=== PATIENT | male | born 1990 | race Caucasian/White ===

== ENCOUNTER 2016-06-09 22:55 | Emergency (ER) | payer SELFPAY ==
[2016-06-09 23:17] VITALS: BP 121/52; PULSE 59; TEMP 98.2; BMI 27.3
--- NOTE | 2016-06-10 00:21 | PDOC ---
History of Present Illness - General History Source: Patient Exam Limitations: No Limitations - History of Present Illness Initial Comments: 06/10/16 00:42 The patient is a 26-year-old male with a significant past medical history of childhood asthma, and presents to the emergency department with shortness of breath and chest pain today. The patient reports the chest pain started earlier today at work, and is located in the midsternal region. He describes the pain as a tightness in his chest. He states the chest pain is exacerbated in the cold weather. He states he was diagnosed with viral syndrome a few days ago at [facility]. He reports a persistent cough. The patient denies palpitations, headache and dizziness. The patient denies fever, chills, nausea, vomit, diarrhea and constipation. The patient denies dysuria, frequency, urgency and hematuria. Allergies: NKDA Past Surgical History: None reported Social History: Former smoker (quit one month ago) <Gali Slaughter - Last Filed: 06/10/16 00:42> <Ailin Barroso - Last Filed: 06/10/16 01:25> - General Chief Complaint: Shortness of Breath Stated Complaint: SOB Time Seen by Provider: 06/10/16 00:20 Past History <Gali Slaughter - Last Filed: 06/10/16 00:42> - Past Medical History Asthma: Yes - Psycho/Social/Smoking Cessation Hx Suicidal Ideation: No Smoking History: Former smoker Have you smoked in the past 12 months: Yes If you are a former smoker, when did you quit?: 1 month Information on smoking cessation initiated: No <Ailin Barroso - Last Filed: 06/10/16 01:25> - Past Medical History Allergies/Adverse Reactions: Allergies Allergy/AdvReac Type Severity Reaction Status Date / Time No Known Allergies Allergy Verified 06/09/16 23:11 Home Medications: Ambulatory Orders NK [No Known Home Medication] 06/10/16 Review of Systems - Review of Systems Able to Perform ROS?: Yes Comments:: 06/10/16 00:42 CONSTITUTIONAL: Absent: fever, chills, diaphoresis, generalized weakness, malaise, loss of appetite HEENT: Absent: rhinorrhea, nasal congestion, throat pain, throat swelling, difficulty swallowing, mouth swelling, ear pain, eye pain, visual changes CARDIOVASCULAR: Present: (+) chest pain Absent: syncope, palpitations, irregular heart rate, lightheadedness, peripheral edema RESPIRATORY: Present: (+) cough, (+) shortness of breath Absent: dyspnea with exertion, orthopnea, wheezing, stridor, hemoptysis GASTROINTESTINAL: Absent: abdominal pain, abdominal distension, nausea, vomiting, diarrhea, constipation, melena, hematochezia GENITOURINARY: Absent: dysuria, frequency, urgency, hesitancy, hematuria, flank pain, genital pain MUSCULOSKELETAL: Absent: myalgia, arthralgia, joint swelling SKIN: Absent: rash, itching, pallor HEMATOLOGIC/IMMUNOLOGIC: Absent: easy bleeding, easy bruising, lymphadenopathy, frequent infections ENDOCRINE: Absent: unexplained weight gain, unexplained weight loss, heat intolerance, cold intolerance NEUROLOGIC: Absent: headache, focal weakness or paresthesias, dizziness, unsteady gait, seizure, mental status changes, bladder or bowel incontinence PSYCHIATRIC: Absent: anxiety, depression, suicidal or homicidal ideation, hallucinations. <Slaughter,Gali - Last Filed: 06/10/16 00:42> *Physical Exam - Vital Signs Last Vital Signs Temp Pulse Resp BP Pulse Ox 98.2 F 59 L 18 121/52 99 06/09/16 23:08 06/09/16 23:08 06/09/16 23:08 06/09/16 23:08 06/09/16 23:08 - Physical Exam Comments: 06/10/16 00:43 GENERAL: Well developed, well nourished. Awake and alert. No acute distress. HEENT: Normocephalic, atraumatic. PERRLA, EOMI. No conjunctival pallor. Sclera are non- icteric. Moist mucous membranes. Oropharynx is clear. NECK: Supple. Full ROM. No JVD. Carotid pulses 2+ and symmetric, without bruits. No thyromegaly. No lymphadenopathy. CARDIOVASCULAR: Regular rate and rhythm. No murmurs, rubs, or gallops. Distal pulses are 2+ and symmetric. PULMONARY: No evidence of respiratory distress. Lungs clear to auscultation bilaterally. No wheezing, rales or rhonchi. ABDOMINAL: Soft. Non-tender. Non-distended. No rebound or guarding. No organomegaly. Normoactive bowel sounds. MUSCULOSKELETAL Normal range of motion at all joints. No bony deformities or tenderness. No CVA tenderness. EXTREMITIES: No cyanosis. No clubbing. No edema. No calf tenderness. SKIN: Warm and dry. Normal capillary refill. No rashes. No jaundice. NEUROLOGICAL: Alert, awake, appropriate. Cranial nerves 2-12 intact. No deficits to light touch and temperature in face, upper extremities and lower extremities. No motor deficits in the in face, upper extremities and lower extremities. Normoreflexic in the upper and lower extremities. Normal speech. Toes are down- going bilaterally. Gait is normal without ataxia. PSYCHIATRIC: Cooperative. Good eye contact. Appropriate mood and affect. <Gali Slaughter - Last Filed: 06/10/16 00:42> - Vital Signs Last Vital Signs Temp Pulse Resp BP Pulse Ox 98.2 F 59 L 18 121/52 99 06/09/16 23:08 06/09/16 23:08 06/09/16 23:08 06/09/16 23:08 06/09/16 23:08 <Ailin Barroso - Last Filed: 06/10/16 01:25> ED Treatment Course - Medications Given in the ED: ED Medications Discontinued Medications Generic Name Dose Route Start Last Admin Trade Name Freq PRN Reason Stop Dose Admin Ibuprofen 600 mg 06/10/16 00:35 06/10/16 00:41 Motrin - PO 06/10/16 00:36 600 mg ONCE ONE Administration <Gali Slaughter - Last Filed: 06/10/16 00:42> Medical Decision Making - Medical Decision Making 06/10/16 01:01 Pt comes with chest wall pain/costochondritis. States that he had been diagnosed with a viral illness and now he has CP. Slight cough. CHest pain. Pt will be treated with NSAIDS and he will get EKG and cxr. Home with nsaids. <Ailin Barroso - Last Filed: 06/10/16 01:25> *DC/Admit/Observation/Transfer - Attestations Scribe Attestion: 06/10/16 00:43 Documentation prepared by Gali Slaughter, acting as biomedical field service engineer for Ailin Barroso MD. <Gali Slaughter - Last Filed: 06/10/16 00:42> - Discharge Dispostion Admit: No <Ailin Barroso - Last Filed: 06/10/16 01:25> Diagnosis at time of Disposition: Cough, Chest wall pain - Discharge Dispostion Condition at time of disposition: Stable - Patient Instructions Printed Discharge Instructions: DI for Costochondritis - Post Discharge Activity Work/School Note: Back to Work
[2016-06-10] MEDS ORDERED: IBUPROFEN 600 MG TABLET (FP) PO ONE ×2 (00:35→00:39)
== END 2016-06-10 01:37 | disposition home or self-care (01) ==
LOC: JER 22:55
DX: M94.0 Chondrocostal junction syndrome [Tietze] (principal); Z87.891 Personal history of nicotine dependence
CPT/HCPCS: 71020-TC; 99282-25

== ENCOUNTER 2018-07-15 09:53 | Emergency (ER) | payer SELFPAY ==
[2018-07-15 10:02] VITALS: BP 144/95; PULSE 93; TEMP 98; BMI 86.3
--- NOTE | 2018-07-15 10:35 | PDOC ---
*Physical Exam - Vital Signs Last Vital Signs Temp Pulse Resp BP Pulse Ox 98.0 F 93 H 17 144/95 100 07/15/18 09:57 07/15/18 09:57 07/15/18 09:57 07/15/18 09:57 07/15/18 09:57 ED Treatment Course - LABORATORY CBC & Chemistry Diagram: 07/15/18 11:15 07/15/18 11:15 Medical Decision Making - Medical Decision Making 07/15/18 10:35 Pt seen by Midlevel Provider under my direct supervision I agree with plan as outlined by Midlevel Provider *DC/Admit/Observation/Transfer Diagnosis at time of Disposition: Upper abdominal pain - Discharge Dispostion Disposition: HOME Condition at time of disposition: Improved - Referrals - Patient Instructions Printed Discharge Instructions: Gastritis, DI for Abdominal Pain-Adult Additional Instructions: You can take Pepcid or prilosec [id number] as needed for pain and follow- up in the following clinic in this week to be seen by GI: [facility] at [phone] - Post Discharge Activity Forms/Work/School Notes: Back to Work
[2018-07-15] MEDS ORDERED: MAG HYDROX/AL HYDROX/SIMETH -MYLANTA- ORAL SUSPENSION PO ONE (10:47)
[2018-07-15] MEDS ORDERED: FAMOTIDINE 20 MG/50 ML IVPB 20 MG/50 ML MG IVPB ONE ×2 (10:47→11:12)
--- NOTE | 2018-07-15 10:51 | PDOC ---
History of Present Illness - General Chief Complaint: Pain Stated Complaint: ABD PAIN Time Seen by Provider: 07/15/18 10:05 History Source: Patient - History of Present Illness Timing/Duration: reports: intermittent Abdominal Pain Onset Location: reports: epigastric Past History - Past Medical History Allergies/Adverse Reactions: Allergies Allergy/AdvReac Type Severity Reaction Status Date / Time No Known Allergies Allergy Verified 07/15/18 10:02 Home Medications: Ambulatory Orders NK [No Known Home Medication] 06/10/16 Asthma: Yes - Suicide/Smoking/Psychosocial Hx Smoking History: Former smoker Have you smoked in the past 12 months: No If you are a former smoker, when did you quit?: 1 month Information on smoking cessation initiated: Yes Review of Systems - Review of Systems Constitutional: No: Chills, Fever Respiratory: No: Shortness of Breath Cardiac (ROS): No: Chest Pain ABD/GI: Yes: Nausea. No: Blood Streaked Bowels, Constipated, Diarrhea, Vomiting : No: Burning, Dysuria, Flank Pain, Hematuria *Physical Exam - Vital Signs Last Vital Signs Temp Pulse Resp BP Pulse Ox 98.0 F 93 H 17 144/95 100 07/15/18 09:57 07/15/18 09:57 07/15/18 09:57 07/15/18 09:57 07/15/18 09:57 - Physical Exam Comments: 07/15/18 11:01 Pt well-appearing and in no apparent distress, currently sitting on chair and on phone General Appearance: Yes: Appropriately Dressed. No: Apparent Distress HEENT: positive: Normal Voice Neck: positive: Supple Respiratory/Chest: negative: Respiratory Distress Gastrointestinal/Abdominal: positive: Normal Bowel Sounds, Soft. negative: Tender, Distended, Guarding, Rebound Musculoskeletal: negative: CVA Tenderness Integumentary: positive: Dry, Warm Neurologic: positive: Fully Oriented, Alert, Normal Mood/Affect ED Treatment Course - LABORATORY CBC & Chemistry Diagram: 07/15/18 11:15 07/15/18 11:15 Medical Decision Making - Medical Decision Making 07/15/18 10:42 28 yo M, p/w severe upper abdominal pain 3 days, described as both "hunger pain " and sharp, intermittent, possible worse with food. Also reports dark vs black stool yesterday. + nausea this a.m. no vomiting. Denies constipation, diarrhea, fever or chills. Patient states for the past 6 months has had intermittent burning epigastric pain radiating into his chest that patient self diagnosed as "acid reflux". Usually takes Zantac which relieve symptoms after about an hour. States he took Zantac 3 days ago, which did not relieve current symptoms. States current pain worse than in the past. Denies excessive ETOH use and denies illicit drug use. Patient states he has never been medically evaluated for his symptoms and currently does not have insurance See exam Possible gastritis/GERD vs PUD, less likely biliary, pancreatitis or appy Exam unremarkable -GI cocktail -labs -anticipate dc w/ GI f/u 07/15/18 12:44 Labs remarkable. Patient now reports significant improvement in pain and feels well enough to go home. As patient has no insurance, will give follow-up in [facility] to be seen by GI *DC/Admit/Observation/Transfer Diagnosis at time of Disposition: Upper abdominal pain - Discharge Dispostion Disposition: HOME Condition at time of disposition: Improved - Referrals - Patient Instructions Printed Discharge Instructions: Gastritis, DI for Abdominal Pain-Adult Additional Instructions: You can take Pepcid or prilosec [id number] as needed for pain and follow- up in the following clinic in this week to be seen by GI: [facility] at [phone] - Post Discharge Activity Forms/Work/School Notes: Back to Work
[2018-07-15] MEDS ORDERED: MAG HYDROX/AL HYDROX/SIMETH 30 ML UNIT-DOSE CUP ONE (11:12)
[2018-07-15 11:46] LABS: BASO % 0.4 % (0-2.0); EOS % 2.9 % (0-4.5); HEMATOCRIT 43.2 % (35.4-49); HEMOGLOBIN 14.9 GM/dL (11.7-16.9); LYMPH % 21.6 % (8-40); MCH 30.7 pg (25.7-33.7); MCHC 34.6 g/dl (32.0-35.9); MEAN CELL VOLUME 88.6 fl (80-96); MEAN PLT VOLUME 8.5 fl (7.5-11.1); NEUT % 70.1 % (42.8-82.8); PLATELET COUNT 258 K/MM3 (134-434); RBC 4.88 M/mm3 (4.00-5.60); RDW 13.4 % (11.9-15.9); WHITE BLOOD COUNT 6.2 K/mm3 (4.0-10.0)
[2018-07-15] MEDS ORDERED: ACETAMINOPHEN 1000 MG/100 ML VIAL (NON FORMULARY) IVPB ONE (12:09)
[2018-07-15] MEDS ORDERED: RANITIDINE HCL 150 MG TABLET (FP) PO ONE (12:09)
[2018-07-15 12:15] LABS: ALBUMIN 4.1 g/dl (3.4-5.0); ALK PHOS 77 U/L (45-117); ANION GAP 5 MMOL/L (8-16); BILIRUBIN,TOTAL 0.4 mg/dL (0.2-1); BLOOD UREA NITROGEN 12 mg/dL (7-18); CHLORIDE 107 mmol/L (98-107); CO2 23 mmol/L (21-32); CREATININE 0.7 mg/dL (0.55-1.3); GLUCOSE,RANDOM 83 mg/dL (74-106); LIPASE 127 U/L (73-393); POTASSIUM 4.4 mmol/L (3.5-5.1); SGOT/AST 47 U/L (15-37); SGPT/ALT 76 U/L (13-61); SODIUM 136 mmol/L (136-145); TOT PROT 7.5 g/dl (6.4-8.2)
[2018-07-15] MEDS ORDERED: ACETAMINOPHEN INJECTION 100 ML IVPB ONE (12:21)
[2018-07-15] MEDS ORDERED: RANITIDINE HCL 150 MG TABLET (FP) ONE (12:21)
[2018-07-15 12:36] LABS: URINE APPEARANCE CLEAR; URINE BILIRUBIN NEGATIVE (NEGATIVE); URINE COLOR YELLOW; URINE GLUCOSE (UA) NEGATIVE (NEGATIVE); URINE KETONE NEGATIVE (NEGATIVE); URINE LEUK ESTERASE NEGATIVE (NEGATIVE); URINE NITRITE NEGATIVE (NEGATIVE); URINE PROTEIN NEGATIVE (NEGATIVE); URINE UROBILINOGEN 0.2 mg/dL (0.2-1.0)
== END 2018-07-15 12:50 | disposition home or self-care (01) ==
LOC: JER 09:53
PROC: 3E033GC Introduction of Other Therapeutic Substance into Peripheral Vein, Percutaneous Approach (ICD-10-PCS; principal; 2018-07-15)
PROC: 3E033NZ Introduction of Analgesics, Hypnotics, Sedatives into Peripheral Vein, Percutaneous Approach (ICD-10-PCS; 2018-07-15)
DX: R10.10 Upper abdominal pain, unspecified (principal)
CPT/HCPCS: 36415; 80053; 81003; 82272; 83690; 85025; 99281-25; J0131

== ENCOUNTER 2018-12-01 07:58 | Emergency (ER) | payer SELFPAY ==
[2018-12-01 08:07] VITALS: BP 142/95; PULSE 78; TEMP 98.2; BMI 36.9
[2018-12-01] MEDS ORDERED: CYCLOBENZAPRINE HCL 10 MG TABLET (FP) ONE (08:36)
[2018-12-01] MEDS ORDERED: KETOROLAC TROMETHAMINE 60 MG/2 ML VIAL IM ONE (08:36)
[2018-12-01] MEDS ORDERED: KETOROLAC TROMETHAMINE 60 MG/2 ML VIAL ONE (08:36)
[2018-12-01] MEDS ORDERED: CYCLOBENZAPRINE HCL 10 MG TABLET (FP) PO ONE (08:36)
--- NOTE | 2018-12-01 08:36 | PDOC ---
History of Present Illness - General Chief Complaint: Chronic pain Stated Complaint: LOWER BACK PAIN Time Seen by Provider: 12/01/18 08:18 History Source: Patient Exam Limitations: No Limitations Past History - Travel Traveled outside of the country in the last 30 days: No Close contact w/someone who was outside of country & ill: No - Past Medical History Allergies/Adverse Reactions: Allergies Allergy/AdvReac Type Severity Reaction Status Date / Time No Known Allergies Allergy Verified 12/01/18 08:03 Home Medications: Ambulatory Orders Cyclobenzaprine HCl [Flexeril -] 10 mg PO HS #10 tablet 12/01/18 Ibuprofen 800 mg PO TID #30 tablet 12/01/18 Ranitidine HCl [Zantac] 150 mg PO PRN 12/01/18 Asthma: Yes COPD: No - Suicide/Smoking/Psychosocial Hx Smoking History: Never smoked Have you smoked in the past 12 months: No If you are a former smoker, when did you quit?: 1 month Hx Alcohol Use: No Drug/Substance Use Hx: No Review of Systems - Review of Systems Able to Perform ROS?: Yes Comments:: 12/01/18 08:22 CONSTITUTIONAL: Absent: fever, chills, diaphoresis, generalized weakness, malaise, loss of appetite GASTROINTESTINAL: Absent: abdominal pain, abdominal distension, nausea, vomiting, diarrhea, constipation, melena, hematochezia GENITOURINARY: Absent: dysuria, frequency, urgency, hesitancy, hematuria, flank pain, genital pain MUSCULOSKELETAL: Present: low back pain Absent: arthralgia, joint swelling SKIN: Absent: rash, itching, pallor NEUROLOGIC: Absent: headache, focal weakness or paresthesias, dizziness, unsteady gait, seizure, mental status changes, bladder or bowel incontinence PSYCHIATRIC: Absent: anxiety, depression, suicidal or homicidal ideation, hallucinations. Is the patient limited Afghan proficient: No *Physical Exam - Vital Signs Last Vital Signs Temp Pulse Resp BP Pulse Ox 98.2 F 78 16 142/95 100 12/01/18 07:59 12/01/18 07:59 12/01/18 07:59 12/01/18 07:59 12/01/18 07:59 - Physical Exam Comments: 12/01/18 08:22 GENERAL: Well developed, well nourished. Awake and alert. No acute distress. NECK: Supple. Full ROM. No JVD. Carotid pulses 2+ and symmetric, without bruits. No thyromegaly. No lymphadenopathy. MUSCULOSKELETAL TTP of the L paraspinous muscles, L5-S1, with palpable knot consistent with muscle spasm. (-) straight leg raise. Pt with midline tenderness when moving. Suspect a pinched nerve vs a herniated disc.Normal range of motion at all joints. No bony deformities or tenderness. No CVA tenderness. EXTREMITIES: No cyanosis. No clubbing. No edema. No calf tenderness. SKIN: Warm and dry. Normal capillary refill. No rashes. No jaundice. NEUROLOGICAL: Alert, awake, appropriate. Cranial nerves 2-12 intact. No deficits to light touch and temperature in face, upper extremities and lower extremities. No motor deficits in the in face, upper extremities and lower extremities. Normoreflexic in the upper and lower extremities. Normal speech. Toes are down- going bilaterally. Gait is normal without ataxia. PSYCHIATRIC: Cooperative. Good eye contact. Appropriate mood and affect. Medical Decision Making - Medical Decision Making 12/01/18 08:23 The patient is a 28-year-old male with past medical history of reflux, who presents to the ER today with low back pain since last night. He states that his back pain initially started 6 months ago and is gotten worse since that time. He notes that the pain started after lifting a heavy bag of laundry. he states that the pain is a shooting pain and feels like a shock. He has not taken any medication for his pain. Denies fevers, chills, nausea, vomiting, numbness and tingling and weakness to the affected extremities, saddle anesthesia and bladder/bowel incontinence. A/P: low back pain -Pt with TTP of the L paraspinous muscles, L5-S1, with palpable knot consistent with muscle spasm. (-) straight leg raise. Pt with midline tenderness when moving. Suspect a pinched nerve vs a herniated disc. -No trauma, or fever. No saddle anesthesia or bladder/bowel incontinence. No CVA tenderness. -Pt is neurologically intact on exam with no focal findings. -Toradol given with relief of symptoms -DC home. Pt to f/u with his PCP. Ortho referral given. -I discussed the physical exam findings, ancillary test results and final diagnoses with the patient. I answered all of the patient's questions. The patient was satisfied with the care received and felt comfortable with the discharge plan and treatment plan. The Patient agrees to follow up with the primary care physician/specialist within 24-72 hours. Return precautions were given. *DC/Admit/Observation/Transfer Diagnosis at time of Disposition: Back pain Qualifiers: Back pain location: low back pain Chronicity: acute Back pain laterality: midline Sciatica presence: without sciatica Qualified Code(s): M54.5 - Low back pain - Discharge Dispostion Disposition: HOME Condition at time of disposition: Stable Decision to Admit order: No - Prescriptions Prescriptions: Cyclobenzaprine HCl [Flexeril -] 10 mg PO HS #10 tablet Ibuprofen 800 mg PO TID #30 tablet - Referrals Referrals: Asa Hall MD [Staff Physician] - Brandon Akins MD, FAATJ [Staff Physician] - - Patient Instructions Printed Discharge Instructions: DI for Low Back Pain Additional Instructions: You were evaluated for your low back pain today. It is most likely due to a muscle spasm/pinched nerve Please take the Motrin as directed. Start taking it tonight before bed Take the Flexiril every 8 hours the first day. Then take the medication at night only. Do not drink or drive after taking this medication as it may make you drowsy. You may apply warm compresses to the area. Do not lift more than 10 lbs until your symptoms have resolved Please see your primary care doctor this week Please follow up with orthopedics if your symptoms do not improve this week; a referral has been provided to you Return to the ER for worsening pain despite treatment, numbness/weakness down the extremities, changes in the way you walk, numbness/tingling to the groin, if you have bladder/bowel incontinence, or if you have any changes in your symptoms. - Post Discharge Activity Forms/Work/School Notes: Back to Work
== END 2018-12-01 08:44 | disposition home or self-care (01) ==
LOC: JERFT 07:58
PROC: 3E0233Z Introduction of Anti-inflammatory into Muscle, Percutaneous Approach (ICD-10-PCS; principal; 2018-12-01)
DX: M54.5 Low back pain (principal)
CPT/HCPCS: 99282-25

== ENCOUNTER 2020-07-01 22:22 | Emergency (ER) | payer OTHER ==
[2020-07-01 22:37] VITALS: BP 139/84; PULSE 92; TEMP 97; BMI 34.4
== END 2020-07-02 00:38 | disposition home or self-care (01) ==
LOC: JER 22:22
DX: R21 Rash and other nonspecific skin eruption (principal)
CPT/HCPCS: 99282-25

== ENCOUNTER 2020-12-20 12:29 | Emergency (ER) | payer OTHER ==
[2020-12-20 12:46] VITALS: BP 107/69; PULSE 79; TEMP 98; BMI 32.4
== END 2020-12-20 14:52 | disposition home or self-care (01) ==
LOC: JER 12:29
DX: R19.7 Diarrhea, unspecified (principal)
CPT/HCPCS: 99283-25; C9803; U0003; U0005

== ENCOUNTER 2021-12-22 22:42 | Emergency (ER) | payer OTHER ==
[2021-12-22 22:46] VITALS: BP 131/77; PULSE 74; RESP 18; TEMP 97.5; BMI 30.5
[2021-12-22] MEDS ORDERED: ACETAMINOPHEN 500 MG TABLET (FP) PO ONE (23:09)
[2021-12-22] MEDS ORDERED: KETOROLAC TROMETHAMINE 30 MG/1 ML VIAL IM ONE (23:09)
[2021-12-22] MEDS ORDERED: LIDOCAINE 5% TOPICAL PATCH TP ONE (23:09)
[2021-12-22] MEDS ORDERED: KETOROLAC TROMETHAMINE 30 MG/1 ML VIAL ONE (23:50)
[2021-12-22] MEDS ORDERED: LIDOCAINE 5% TOPICAL PATCH ONE (23:50)
[2021-12-22] MEDS ORDERED: ACETAMINOPHEN 325 MG TABLET (FP) ONE (23:51)
[2021-12-23] MEDS ORDERED: DEXAMETHASONE SOD PHOSPHATE 10 MG/1 ML VIAL IVPUSH ONE (00:27)
[2021-12-23] MEDS ORDERED: DEXAMETHASONE SOD PHOSPHATE 10 MG/1 ML VIAL ONE (00:35)
[2021-12-23] MEDS ORDERED: LIDOCAINE PATCH REMOVAL MC ONE (12:00)
== END 2021-12-23 00:43 | disposition home or self-care (01) ==
LOC: JER 22:42
PROC: 3E033GC Introduction of Other Therapeutic Substance into Peripheral Vein, Percutaneous Approach (ICD-10-PCS; principal; 2021-12-22)
PROC: 3E023GC Introduction of Other Therapeutic Substance into Muscle, Percutaneous Approach (ICD-10-PCS; principal; 2021-12-22)
DX: S29.012A Strain of muscle and tendon of back wall of thorax, initial encounter (principal); Y99.9 Unspecified external cause status
CPT/HCPCS: 99284-25; J1100